=== PATIENT | female | born 1995 | race Caucasian/White ===

== ENCOUNTER 2016-05-27 19:11 | Emergency (ER) | payer OTHER | END 2016-05-27 21:40 | disposition home or self-care (01) | LOC: ER 19:11 | DX: O21.1 Hyperemesis gravidarum with metabolic disturbance (principal); R35.0 Frequency of micturition; R39.15 Urgency of urination; F31.9 Bipolar disorder, unspecified; F90.9 Attention-deficit hyperactivity disorder, unspecified type; E11.9 Type 2 diabetes mellitus without complications; E03.9 Hypothyroidism, unspecified; Z88.0 Allergy status to penicillin; Z88.1 Allergy status to other antibiotic agents; Z88.5 Allergy status to narcotic agent; Z3A.21 21 weeks gestation of pregnancy | CPT/HCPCS: 36415; 96361; 96374; J2550 ==